=== PATIENT | female | born 1960 | race Caucasian/White ===

== ENCOUNTER 2019-09-01 12:58 | Emergency (ER) | payer MEDICAID ==
[~2019-09-01] VITALS: Ht 170.2 cm; Wt 79.1 kg
[~2019-09-01 12:58] MED LIST: ALBU6.7H8 INH; ALLO100T30 PO; AMLO-150 PO; ASPI325T92 PO; ENAL20TA PO; ERGO500047 PO; FLUT12AE INH; IMAT400T PO; LEVA15HF4 INH; LORA10TA62 PO; METH500T7 PO; PROM25SU35 PR; RANI300C PO; ROPI1TAB2 PO; TIOT18CA INH
[2019-09-01] MEDS ORDERED: HYDROcodone/APAP 5/325 TABLET PO ONE (14:00)
[2019-09-01] MEDS ORDERED: HYDROcodone/APAP 5/325 TABLET ONE (14:07)
--- NOTE | 2019-09-01 14:42 | NUR ---
WOUND REDRESSED, PT TO XRAY AT THIS TIME.
--- NOTE | 2019-09-01 15:23 | NUR ---
PT.'S WOUNDS WERE DRESSED. SLING IS APPLIED. PT. WAS ASSISTED TO THE RESTROOM AND WITH DRESSING. CMS CHECKS REMAIN INTACT THROUGHOUT ALL 4 EXTREMITIES. PT. WAS GIVEN DISCHARGE INSTRUCTIONS AND A SCRIPT FOR PAIN MEDICATION. UNDERSTANDING WAS VERBALIZED ALONG WITH WILLINGNESS TO COMPLY.
[2019-09-01 16:12] VITALS: BP 114/70
== END 2019-09-01 16:15 | disposition home or self-care (01) ==
LOC: ED 16:00
DX: S42.201A Unspecified fracture of upper end of right humerus, initial encounter for closed fracture (principal); F17.200 Nicotine dependence, unspecified, uncomplicated; W19.XXXA Unspecified fall, initial encounter; Y93.89 Activity, other specified; Y92.098 Other place in other non-institutional residence as the place of occurrence of the external cause; Y99.8 Other external cause status
CPT/HCPCS: 29105; 99283